=== PATIENT | male | born 1960 ===

== ENCOUNTER 2018-07-21 11:37 | Emergency (ER) | payer OTHER ==
[2018-07-21 11:39] VITALS: BMI 24.3
[2018-07-21] MEDS ORDERED: Calcium Chloride 1000 mg/10 ml Syringe ONE (11:45)
[2018-07-21] MEDS ORDERED: Sodium Bicarbonate (8.4%) 50 Meq Syringe ONE (11:45)
[2018-07-21] MEDS ORDERED: Calcium Gluconate 4.65 mEq/10 ml Inj ONE (11:45)
[2018-07-21] MEDS ORDERED: Amiodarone 150mg/3 ml vial ONE ×2 (11:50→11:57)
[2018-07-21 11:53] LABS: BASO # 0.1 K/uL (0.0-0.2); BASO % 0.5 % (0.0-2.0); EOS # 0.1 K/uL (0.0-0.7); EOS % 0.6 % (0.0-4.0); HEMOGLOBIN 12.9 g/dL (12.0-18.0); LYMPH # 3.6 K/uL (1.0-4.3); MEAN CELL VOLUME 107.6 fL (80.0-94.0); MEAN CORPUSCULAR HGB CONC 31.6 g/dL (33.0-37.0); MEAN PLATELET VOLUME 11.2 fL (7.2-11.7); MONO # 0.1 K/uL (0.0-0.8); MONO % 0.7 % (0.0-10.0); NEUT # 15.9 K/uL (1.8-7.0); NEUT % 80.2 % (50.0-75.0); NRBC % 0.4 % (0.0-2.0); PLATELET COUNT 334 K/uL (130-400); RBC 3.79 Mil/uL (4.40-5.90); RED CELL DISTRIBUTION WIDTH 20.3 % (11.5-14.5); WHITE BLOOD COUNT 19.8 K/uL (4.8-10.8)
[2018-07-21 12:01] LABS: INR 1.7
--- NOTE | 2018-07-21 12:09 | C.PDOC ---
History Of Present Illness 58 y/o male, w/ PMhx of pulmonary fibrosis (02 dependant at home) brought to ER by BLS for cardiac arrest at approximately 11:37 am. As per family, patient was not feeling well all day. Family states that he was complaining of back pain. Then ,his eyes rolled back, he became pale. He collapsed and became incontinent. Family called for the ambulance and patient was brought in via BLS. CPR was in progress and patient is being ventilated upon arrival. Of note, ER staff was notified about patient's arrival at 11:28 am. Time Seen by Provider: 07/21/18 11:39 Chief Complaint (Nursing): Cardiac Arrest History Per: EMS, Family Reason For Code Blue: Full Arrest Circumstances: Brought To ED By EMS Arrest Witnessed By: Family CPR Initiated Prior To MD Arrival?: Yes Treatment Initiated Prior To MD Arrival: Yes: CPR, BVM Ventilations - Initial Findings Mentation: Unresponsive Past Medical History Reviewed: Historical Data, Nursing Documentation, Vital Signs Family History: States: No Known Family Hx - Social History Hx Alcohol Use: No Hx Substance Use: No - Immunization History Hx Tetanus Toxoid Vaccination: No Hx Influenza Vaccination: No Hx Pneumococcal Vaccination: No Review Of Systems Review Of Systems: ROS cannot be obtained secondary to pt's inabilty to answer questions. Physical Exam - Physical Exam Appears: Other (pulsless and breathless) Skin: Pale, Mottled, Cyanotic, Other (mottled) Head: Atraumatic, Normacephalic Eye(s): bilateral: Other (pupils fixed and dilated ) Tongue: Normal Appearing Neck: Supple Cardiovascular: Other (pulseless) Respiratory: Other (pulsless, easy to ventilate) Gastrointestinal/Abdominal: Soft, No Distention Extremity: Other (no pitting edema) Neurological/Psych: Other (no response) ED Course And Treatment - Laboratory Results Result Diagrams: 07/21/18 11:48 07/21/18 11:48 Lab Results: PT 19.0 SECONDS (9.7-12.2) H 07/21/18 11:48 INR 1.7 07/21/18 11:48 APTT 45 SECONDS (21-34) H 07/21/18 11:48 Medical Decision Making Medical Decision Making: Plan: CPR continued in ER. Patient managed via ACLS protocols without successful resuscitation. Time of declared at 11:59 am. Patient's family on scene. Pending MD and Disposition - Disposition Disposition: WITH WITHOUT AUTOPSY Disposition Time: 12:08 Condition: Forms: [facility] (H[place]ian) - Clinical Impression Clinical Impression: Cardiac arrest Critical Care Time - Critical Care Note Total Time (in mins): 25 Documented critical care: time excludes all time spent performing seperately billable procedures. - Scribe Statement The provider has reviewed the documentation as recorded by the Jamesibjohn Hernandez Provider Attestation: All medical record entries made by the Scribe were at my direction and personally dictated by me. I have reviewed the chart and agree that the record accurately reflects my personal performance of the history, physical exam, medical decision making, and the department course for this patient. I have also personally directed, reviewed, and agree with the discharge instructions and disposition.
[2018-07-21 12:26] LABS: ANISOCYTOSIS MODERATE; BANDS 36 % (0-2); LYMPHOCYTE 25 % (20-40); METAMYELOCYTE 1 % (0-0); MONOCYTE 3 % (0-10); MYELOCYTE 3 % (0-0); NEUTROPHIL 32 % (50-75); PLATELET ESTIMATE NORMAL (NORMAL); TOTAL CELLS COUNTED 100; TOXIC GRANULATION PRESENT
[2018-07-21 12:29] LABS: ALB/GLOB RATIO 0.9 (1.0-2.1); ALBUMIN 3.4 g/dL (3.5-5.0); CALCIUM 9.7 mg/dl (8.6-10.4)
== END 2018-07-21 15:46 ==
LOC: C.ER 11:37
DX: I46.9 Cardiac arrest, cause unspecified (principal)
CPT/HCPCS: 31500; 80053; 84484; 85025; 85610; 85730; 86850; 86900; 92950; 99285; J0171; J0282; J0610